=== PATIENT | female | born 1970 | race Caucasian/White ===

== ENCOUNTER 2021-01-10 11:10 | Emergency (ER) | payer OTHER ==
[~2021-01-10] VITALS: Ht 170.2 cm; Wt 86.2 kg
[~2021-01-10 11:10] MED LIST: AMOXICILLIN; CLARITIN; PRENATAL; ZOFRAN8 MG
[2021-01-10] MEDS ORDERED: IBUPROFEN 800800 M1 PO (12:46)
[2021-01-10] MEDS ORDERED: AUGMENTIN 875-1 EACH PO (12:46)
[2021-01-10] MEDS ORDERED: NORCO5 PO (12:46)
[2021-01-10] MEDS ORDERED: ROBAXIN 750 MG750 MG PO (12:57)
[2021-01-10 13:00] VITALS: BP 146/72
== END 2021-01-10 13:01 | disposition home or self-care (01) ==
LOC: M.ERS 11:10
DX: S81.811A Laceration without foreign body, right lower leg, initial encounter (principal); S81.852A Open bite, left lower leg, initial encounter; W54.0XXA Bitten by dog, initial encounter; Y93.89 Activity, other specified; Y92.096 Garden or yard of other non-institutional residence as the place of occurrence of the external cause; Y99.8 Other external cause status

== ENCOUNTER → 2021-11-16 | Outpatient (CLI) | payer OTHER ==
[~2021-11-16] MED LIST changes: +AUGMENTIN 875-1 EACH PO; +IBUPROFEN 800800 M1 PO; +NORCO5 PO; +ROBAXIN 750 MG750 MG PO
== END ==
LOC: M.CT 11-11 09:00
PROVIDERS: ATTEND Family Medicine
DX: Z13.6 Encounter for screening for cardiovascular disorders (principal)